=== PATIENT | male | born 1940 | race Caucasian/White ===

== ENCOUNTER 2019-02-23 14:38 | Inpatient (IN) | payer OTHER, MEDICARE ==
[~2019-02-23] VITALS: Ht 180.3 cm; Wt 89.0 kg
[~2019-02-23 14:38] MED LIST: ALBU90OI61 INH; AMMO140TC TOP; ANDROGEL 1%; ATOR40TA PO; BRIMONIDINE TART5 ML BOTHEYES; COLC.6 PO; Cephalexin500 M1 PO; DOXY100 PO; FLUT1DIS5 INH; GABA600 PO; Hydroxyzine HCl50 MG PO; MAGOXI400 PO; MULVITMIND PO; Norco 5-325 Ta1 EACH PO; PERIDEX15 ML MM; PIOG15 PO; POTASSIUM GLUC500 MG PO; PRED20 PO; TIMDOROPSO OU; TIOT18 INH; TOLT4 PO; TRAV.004OP OU; WARF2 PO; WARF2.5; WARF3 PO
[2019-02-23 15:18] LABS: BASOPHILS ABSOLUTE AUTO 0.03 K/mm3 (0.00-0.23); BASOPHILS PERCENT AUTO 0 % (0-2); EOSINOPHILS ABSOLUTE AUTO 0.02 K/mm3 (0.00-0.68); EOSINOPHILS PERCENT AUTO 0 % (0-6); Hematocrit 29.4 % (37.0-53.0); IMMATURE GRAN ABSOLUTE AUTO 0.02 K/mm3 (0.00-0.10); IMMATURE GRAN PERCENT AUTO 0 % (0-1); LYMPHOCYTES ABSOLUTE AUTO 1.01 K/mm3 (0.84-5.20); LYMPHOCYTES PERCENT AUTO 14 % (21-46); MONOCYTES ABSOLUTE AUTO 0.53 K/mm3 (0.16-1.47); MONOCYTES PERCENT AUTO 7 % (4-13); Mean Corpuscular HGB 29.6 pg (26.0-34.0); Mean Corpuscular HGB Conc 30.6 g/dL (31.5-36.5); Mean Corpuscular Volume 97 fL (80-100); Mean Platelet Volume 10.4 fL (9.1-12.4); NEUTROPHILS ABSOLUTE AUTO 5.71 K/mm3 (1.96-9.15); NEUTROPHILS PERCENT AUTO 78 % (41-73); Platelet Count 406 K/mm3 (150-400); RDW Coefficient Variation 16.7 % (11.7-14.2); RDW Standard Deviation 59.2 fL (35.1-46.3); Red Blood Cell Count 3.04 M/mm3 (4.30-5.90); White Blood Cell Count 7.32 K/mm3 (4.00-11.30)
[2019-02-23 15:40] LABS: Alanine Aminotransfer (ALT/SGP 33 U/L (12-78); Albumin, Blood 3.6 g/dL (3.4-5.0); Albumin/Globulin Ratio 0.9 (0.8-1.8); Alk Phos 165 U/L (50-136); Anion Gap 9 mmol/L (6-16); Aspartate Aminotrans (AST/SGOT 18 U/L (12-37); Bilirubin, Total 0.5 mg/dL (0.1-1.0); Blood Urea Nitrogen 45 mg/dL (8-24); Bun/Creatinine Ratio 46.6 (12.0-20.0); CO2, Blood 27 mmol/L (21-32); Calcium, Blood 9.1 mg/dL (8.5-10.1); Chloride, Blood 103 mmol/L (98-108); Creatinine, Blood 0.97 mg/dL (0.60-1.20); Glomerular Filtration Rate >60 (60-); Glucose, Blood 139 mg/dL (70-99); Potassium, Blood 3.6 mmol/L (3.5-5.5); Sodium, Blood 139 mmol/L (136-145); Total Protein, Blood 7.6 g/dL (6.4-8.2)
[2019-02-23] MEDS ORDERED: Aspirin EC81 MG PO (16:09)
[2019-02-23] MEDS ORDERED: FURO40 PO (16:10)
[2019-02-23] MEDS ORDERED: Lopressor 25 mg25 MG PO (16:10)
[2019-02-23 20:15] LABS: Hemoglobin 8.7 g/dL (13.5-17.5)
[2019-02-23 20:59] LABS: International Normalized Ratio 3.31; Prothrombin Time Results 31.5 Sec (9.7-11.5)
[2019-02-23] MEDS ORDERED: WARF2.5 PO (21:19)
[2019-02-23] MEDS ORDERED: ACET500 PO (21:20)
--- NOTE | 2019-02-24 00:15 | NUR ---
ADMIT NOTE: ADMIT 78 YEAR OLD MALE TO ICU 16 PER MALORIE VIA ER. TO [facility]. TRANSFER TO BED USING SLIDER SHEET. REPEATDLY ASKING FOR URINAL AND WANTIN TO GET OUT OF BED. ALSO ASKING FOR FOOD AND SOMETHING TO DRINK. NPO AND BEDREST STATUS EXPLAINED URINAL OFFERED MONITOR PLACED SHOWING A FIB HEART RATE 120'S- 150'S. UNABLE TO FOLLOW COMMANDSAGITATED. COMPLETES RELEASE OF INFORMATION AND BLOOD CONSENT. FALLS ASLEEP DURING ADMIT HX AND ASSESSMENT. LUNG SOUNDS DECREASED LOWER LOBES AND COARSE DECREASED UPPER LOBES. O2 IN PLACE AT 2L/MIN PER NASAL CANNULA. ABDO MEN SOFT WITH BOWEL SOUNDS FOUR QUADS. UNABLE TO VOID USING URINAL OR BED MCNEIL BLADDER SCAN COMPLETED WITH 411ML SHOWING IN BLADDER. SKIN DRY WITH SKIN TEAR TO BOTH FOREARMS FROM HITTIN ON BEDRAILS IN ER. DRESSINGS INTACT. 1+ EDEMA NOTED TO FEET. FRANCIS WELL IN BED. CONTINUE TO MONITOR AND REPORT CHANGE IN PATIENT CONDITION
[2019-02-24 00:58] LABS: Hematocrit 26.8 % (37.0-53.0)
[2019-02-24 01:19] LABS: Prothrombin Time Results 37.7 Sec (9.7-11.5)
[2019-02-24 01:20] LABS: International Normalized Ratio 4.04
--- NOTE | 2019-02-24 01:49 | NUR ---
SPOKE WITH DR TUBBS RE LAB RESULTS ORDERS NOTED TRANSFUSION OF FFP HELD CONTINUE TO MONITOR AND REPORT CHANGE IN PATIET CONDITION
[2019-02-24 02:50] LABS: Source, Urine Clean Catch
--- NOTE | 2019-02-24 02:50 | NUR ---
VALARIE RALPH SENT TO LAB. UP TO BSC WITH ASSIST OF ONE. LESS AGITATED MORE COOPERATIVE. CONTINUE TO MONITOR AND REPORT CHANGE IN PATIENT CONDITION.
[2019-02-24 03:05] LABS: Appearance, Urine Hazy (Clear); Bilirubin, Urine Neg (Neg); Blood, Urine 1+ (Neg); Color, Urine Yellow (P-Yellow); Glucose Qualitative, Urine Neg (Neg); Ketones, Urine Neg (Neg); Leukocyte Esterase, Urine 3+ (Neg); Nitrite, Urine Neg (Neg); Protein, Urine 2+ (Neg); Urobilinogen, Urine NORM (Normal)
--- NOTE | 2019-02-24 03:13 | NUR ---
TRANSFER TO PCU PER WHEEL CHAIR. GAIT STEADY TO TRANSFER TO CHAIR. MONITOR SHOWING SINUS RHYTHM HEART RATE 70 'S DENIES DISCOMFORT.
[2019-02-24 03:14] LABS: Bacteria Many /hpf; Red Blood Cells, Urine 0-2 /hpf (0-2); Squamous Epithelial Cells Not Seen /hpf (Few); White Blood Cells, Urine TNTC /hpf (0-5)
[2019-02-24 03:17] LABS: U Amphetamine Screen Not Detected; U Barbituate Screen Not Detected; U Benzodiazapine Screen Not Detected; U Buprenorphine Screen Not Detected; U Cannabinoids Screen Not Detected; U Cocaine Screen Not Detected; U Methadone Screen Not Detected; U Methamphetamine Screen Not Detected; U Opiates Screen Not Detected; U Oxycodone Screen Not Detected; U Phencyclidine Screen Not Detected; U Propoxyphene Screen Not Detected
--- NOTE | 2019-02-24 06:02 | NUR ---
SHIFT SUMMARY: RESTS QUIETLY WHEN UNDISTURBED. MONITOR INTACT SHOWING A FIB. HEART RATE 120'S-150'S. LUNG SOUNDS DECREASED WORSE ON LEFT. O2 IN PLACE AT 3L/MIN. BECOMES SHORT OF BREATH WITH EXERTION. ABDOMEN SOFT WITH BOWEL SOUNDS FOUR QUADS. GAIT SLOW STEADY TO TOILET WITH ONE ASSIST. STATES USES WALKER/CANE AT HOME. VOIDS MICHAEL URINE. CONTINUE TO MONITOR AND REPORT CHANGE IN PATIENT CONDITION.
[2019-02-24 07:03] LABS: Hematocrit 26.7 % (37.0-53.0); Hemoglobin 8.1 g/dL (13.5-17.5); Mean Corpuscular HGB 29.3 pg (26.0-34.0); Mean Corpuscular HGB Conc 30.3 g/dL (31.5-36.5); Mean Corpuscular Volume 97 fL (80-100); Mean Platelet Volume 10.6 fL (9.1-12.4); Platelet Count 397 K/mm3 (150-400); RDW Standard Deviation 59.1 fL (35.1-46.3); Red Blood Cell Count 2.76 M/mm3 (4.30-5.90); White Blood Cell Count 13.53 K/mm3 (4.00-11.30)
[2019-02-24 07:04] LABS: Hematocrit 27.3 % (37.0-53.0); Hemoglobin 8.3 g/dL (13.5-17.5)
--- NOTE | 2019-02-24 07:15 | NUR ---
START OF SHIFT NOTE: RECEIVED REPORT FROM JAE LAZCANO, ASSUMED CARE, PATIENT IS SITTING IN BED, WRETCHING, C/O NAUSEA, DRY HEAVES, NO EMESIS NOTED HR 120'S, BP VERY LOW 100'S, PATIENT ASKED TO GET UP TO CHAIR BUT D/T HIS CONDITION REMAINS IN BED, BRUISES NOTED THROUGHOUT ENTIRE BODY, PROTONIX DRIP INFUSING, POSSIBLE SCOPE THIS AM BY DR. WYMAN, POSSIBLE HEAD CT THIS AM, CALL LIGHT IN REACH, WILL CONTINUE TO MONITOR.
[2019-02-24 07:21] LABS: Albumin, Blood 3.3 g/dL (3.4-5.0); Albumin/Globulin Ratio 0.9 (0.8-1.8); Bilirubin, Total 0.7 mg/dL (0.1-1.0); Bun/Creatinine Ratio 35.7 (12.0-20.0); Calcium, Blood 8.8 mg/dL (8.5-10.1); Creatinine, Blood 1.26 mg/dL (0.60-1.20); Globulin, Blood 3.5 g/dL (2.2-4.0); Potassium, Blood 4.5 mmol/L (3.5-5.5); Total Protein, Blood 6.8 g/dL (6.4-8.2)
[2019-02-24 07:33] LABS: Prothrombin Time Results 45.2 Sec (9.7-11.5)
[2019-02-24 07:34] LABS: International Normalized Ratio 4.93
--- NOTE | 2019-02-24 08:29 | NUR ---
PATIENT RECEIVING IV VITAMIN K ORDERED BY DR. CHRISTOPHER, ALSO ON ROCEPHIN, PATIENT IS EXTREMELY SOB EVEN WITH JUST SITTING IN BED, HR 120'S, BLOOD PRESSURE IN 90'S, UP TO BSC TO VOID, BUT URINAL WAS PLACED AT BEDSIDE D/T EXTREME SOB WITH EXERTION, CALL LIGHT IN REACH, WILL CONTINUE TO MONITOR.
[2019-02-24 12:57] LABS: Hematocrit 29.8 % (37.0-53.0); Hemoglobin 8.3 g/dL (13.5-17.5)
[2019-02-24 15:25] LABS: International Normalized Ratio 5.15
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
[2019-02-24 18:55] LABS: Hematocrit 25.6 % (37.0-53.0); Hemoglobin 7.6 g/dL (13.5-17.5)
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
[2019-02-24 21:49] LABS: PCO2 Arterial 45.9 mmHg (35-45); PO2 Arterial 34.7 mmHg (80-100); pH Blood Arterial 6.89 (7.35-7.45)
[2019-02-24 21:52] LABS: Albumin, Blood 2.9 g/dL (3.4-5.0); Albumin/Globulin Ratio 0.9 (0.8-1.8); BASOPHILS ABSOLUTE AUTO 0.01 K/mm3 (0.00-0.23); BASOPHILS PERCENT AUTO 0 % (0-2); Bilirubin, Total 0.7 mg/dL (0.1-1.0); Bun/Creatinine Ratio 27.4 (12.0-20.0); Calcium, Blood 8.4 mg/dL (8.5-10.1); Creatinine, Blood 1.79 mg/dL (0.60-1.20); EOSINOPHILS PERCENT AUTO 0 % (0-6); Globulin, Blood 3.4 g/dL (2.2-4.0); Hematocrit 26.4 % (37.0-53.0); Hemoglobin 7.6 g/dL (13.5-17.5); IMMATURE GRAN ABSOLUTE AUTO 0.11 K/mm3 (0.00-0.10); IMMATURE GRAN PERCENT AUTO 1 % (0-1); LYMPHOCYTES ABSOLUTE AUTO 1.15 K/mm3 (0.84-5.20); LYMPHOCYTES PERCENT AUTO 8 % (21-46); MONOCYTES ABSOLUTE AUTO 1.53 K/mm3 (0.16-1.47); MONOCYTES PERCENT AUTO 11 % (4-13); Mean Corpuscular HGB 30.9 pg (26.0-34.0); Mean Corpuscular HGB Conc 28.8 g/dL (31.5-36.5); Mean Platelet Volume 11.5 fL (9.1-12.4); NEUTROPHILS ABSOLUTE AUTO 11.43 K/mm3 (1.96-9.15); NEUTROPHILS PERCENT AUTO 80 % (41-73); NRBC ABSOLUTE 0.05 K/mm3 (0.00-0.02); NRBC Auto 0.4 /100 WBC (0.0-0.2); Platelet Count 365 K/mm3 (150-400); Potassium, Blood 5.3 mmol/L (3.5-5.5); RDW Coefficient Variation 17.5 % (11.7-14.2); RDW Standard Deviation 67.8 fL (35.1-46.3); Red Blood Cell Count 2.46 M/mm3 (4.30-5.90); Total Protein, Blood 6.3 g/dL (6.4-8.2); Troponin I 76.2 ng/mL (0.000-0.040); White Blood Cell Count 14.23 K/mm3 (4.00-11.30)
[2019-02-24 21:53] LABS: Mean Corpuscular Volume 107 fL (80-100)
--- NOTE | 2019-02-24 21:55 | NUR ---
Worsening Condition/TOD: At approx 2030, patient had syncope episode after attends change, lasting approx 30 seconds, patient also reported increasing SOB. BP also decreasing at this time, systolic 70's, MAP 50's. Contacted Juan Carlos Bartlett, Received order to start additional fluid bolus and keep patient lying flat as tolerated. Patient again went unresponsive while on phone with Juan Carlos, and remained unresponsive. Additional fluids started, BP continued to decrease (60's), Juan Carlos Pushpinger to room approx 2050, Shira Gudino RN contacted patient's daughter. Received verbal order for Dopamine through peripheral IV, STAT EKG, STAT chest x-ray, and STAT lab orders for CBC, PT/INR, BMP, lactic, and Troponin. Dopamine started at 5mcg/kg/min, and titrated up to 15mcg/kg/min per continued low BP's. Chest x-ray, EKG, and lab draws completed. Patient's daughter to room at approx 2120hr, agreed with current treatment and wished to continue to keep patient DNR. Order for lyndsey-synephrine received per Juan Carlos Bartlett, per continued low BP, care withdrawn before the medication was started. At approx 2150hr, patient's breathing became agonal. Patient's daughter then gave verbal "ok" to Juan Carlos Bartlett to withdrawal care. PEA noted, and LIZZY called at 2155hr. Pastoral care called to come see patient and daughter. Patient's wedding ring removed and sent home with daughter.
[2019-02-24 22:13] LABS: International Normalized Ratio 2.56
[2019-02-24 22:19] LABS: Prothrombin Time Results 24.9 Sec (9.7-11.5)
--- NOTE | 2019-02-24 23:01 | NUR ---
Call back - Met with pt's daughter Lila. She was provided space to reminisce about her dad and what he meant to her. Lila lost her mother a month ago in a crash and another family member a couple of months before. She was tearful as she shared. Lila notified her brother while I was present. Family friend Loly arrives and a verbal prayer was offered on behalf of the those present. Lila verbalized gratitude for the PC support.
== END 2019-02-24 21:55 | DRG 871 ==
LOC: ER 14:38 → ICUW 14:39
PROVIDERS: Emergency Medicine; Family Medicine; Nurse Practitioner Acute Care; Physician Assistant; ADMIT Internal Medicine
PROC: 30233K1 Transfusion of Nonautologous Frozen Plasma into Peripheral Vein, Percutaneous Approach (ICD-10-PCS; principal; 2019-02-24)
DX: A41.9 Sepsis, unspecified organism (principal); G93.41 Metabolic encephalopathy; I42.2 Other hypertrophic cardiomyopathy; G24.02 Drug induced acute dystonia; N39.0 Urinary tract infection, site not specified; K92.2 Gastrointestinal hemorrhage, unspecified; J90 Pleural effusion, not elsewhere classified; J98.11 Atelectasis; R65.20 Severe sepsis without septic shock; Z79.01 Long term (current) use of anticoagulants; H40.9 Unspecified glaucoma; E78.5 Hyperlipidemia, unspecified; Z85.46 Personal history of malignant neoplasm of prostate; M10.9 Gout, unspecified; E11.9 Type 2 diabetes mellitus without complications; Z98.52 Vasectomy status; S22.31XD Fracture of one rib, right side, subsequent encounter for fracture with routine healing; R00.0 Tachycardia, unspecified; T42.6X5A Adverse effect of other antiepileptic and sedative-hypnotic drugs, initial encounter; Z66 Do not resuscitate; I48.91 Unspecified atrial fibrillation; Z79.82 Long term (current) use of aspirin; E86.0 Dehydration; I25.10 Atherosclerotic heart disease of native coronary artery without angina pectoris; Z95.5 Presence of coronary angioplasty implant and graft; S22.21XD Fracture of manubrium, subsequent encounter for fracture with routine healing; J43.9 Emphysema, unspecified; Z87.891 Personal history of nicotine dependence; Y92.238 Other place in hospital as the place of occurrence of the external cause; V89.2XXD Person injured in unspecified motor-vehicle accident, traffic, subsequent encounter
CPT/HCPCS: 36415; 36430; 36600; 71045; 71260; 74177; 80053; 81001; 82803; 82947; 83605; 83690; 83880; 84145; 84484; 85014; 85018; 85025; 85027; 85610; 86850; 86900; 86901; 86923; 87077; 87086; 87186; 93005; 93010; 94640; 96365-59; 96366-59; 96375-59; 96376-59; 99285-25; C9113; J0696; J1200; J1265; J2060; J2370; J2405; J2550; J3370; J3430; J7030; J7040; J7050; P9059; Q9967